=== PATIENT | female | born 1960 | race Two or more races ===

== ENCOUNTER 2021-05-20 07:47 | Outpatient (CLI) | payer OTHER | END 2021-05-20 07:48 | disposition home or self-care (01) | LOC: LAB 07:47 | PROVIDERS: ATTEND Surgery | DX: I10 Essential (primary) hypertension (principal) ==

== ENCOUNTER 2021-05-22 11:45 | Inpatient (IN) | payer OTHER ==
[~2021-05-22] VITALS: Ht 160 cm; Wt 81.6 kg
[2021-05-22] MEDS ORDERED: LEVO-T50 MCG PO (13:30)
[2021-05-22] MEDS ORDERED: COZAAR100 MG PO (13:31)
[2021-05-22] MEDS ORDERED: NORVASC5 MG PO (13:31)
[2021-05-29] MEDS ORDERED: DICLOFENAC SODI75 MG PO (09:04)
== END 2021-05-29 10:23 | disposition home or self-care (01) | DRG 331 ==
LOC: SURH 05-26 05:40 → O/R 05-26 05:40 → SURH 05-26 07:00
PROVIDERS: ADMIT Surgery; ATTEND Surgery
PROC: 0DTN4ZZ Resection of Sigmoid Colon, Percutaneous Endoscopic Approach (ICD-10-PCS; 2021-05-26)
PROC: 3E0F7SF Introduction of Other Gas into Respiratory Tract, Via Natural or Artificial Opening (ICD-10-PCS; 2021-05-26)
PROC: 0DTP4ZZ Resection of Rectum, Percutaneous Endoscopic Approach (ICD-10-PCS; principal; 2021-05-26 07:00)
DX: K57.32 Diverticulitis of large intestine without perforation or abscess without bleeding (principal); N73.6 Female pelvic peritoneal adhesions (postinfective)

== ENCOUNTER 2022-01-04 13:22 | Emergency (ER) | payer OTHER ==
[~2022-01-04] VITALS: Ht 160 cm; Wt 86.2 kg
[~2022-01-04 13:22] MED LIST: COZAAR100 MG PO; DICLOFENAC SODI75 MG PO; LEVO-T50 MCG PO; NORVASC5 MG PO
== END 2022-01-04 18:06 | disposition home or self-care (01) ==
LOC: ER 13:22
DX: U07.1 COVID-19 (principal)

== ENCOUNTER 2022-01-05 10:15 | Outpatient (CLI) | payer OTHER | END 2022-01-05 11:00 | disposition home or self-care (01) | LOC: ASH CLINIC 10:15 | PROVIDERS: ATTEND Emergency Medicine | DX: U07.1 COVID-19 (principal) ==

== ENCOUNTER 2022-11-23 10:07 | Outpatient (CLI) | payer OTHER | END 2022-11-23 10:10 | disposition home or self-care (01) | LOC: SONOGRAMA 10:07 | PROVIDERS: ATTEND Pathology Anatomic Pathology & Clinical Pathology | DX: D34 Benign neoplasm of thyroid gland (principal); E07.9 Disorder of thyroid, unspecified; E04.1 Nontoxic single thyroid nodule ==